=== PATIENT | male | born 1985 | race Caucasian/White ===

== ENCOUNTER 2019-04-06 00:23 | Observation (INO) ==
[2019-04-06] MEDS ORDERED: ATIVAN IV ONE (01:02)
[2019-04-06 01:23] LABS: BASO# 0.03 X1000 (0.0-0.2); BASO% 0.2 % (0.0-0.8); EOS# 0.04 X1000 (0.0-0.7); EOS% 0.2 % (0.0-10.0); HEMATOCRIT 45.9 % (42.0-52.0); HEMOGLOBIN 16.1 g/dL (14.0-18.0); IMM GRAN# 0.06 X1000 (0.0-0.04); IMM GRAN% 0.4 % (0.0-0.5); LYMPH# 1.36 X1000 (1.2-3.4); LYMPH% 8.1 % (20.5-51.1); MCH 29.3 PG (27-31); MCHC 35.1 g/dL (33-37); MCV 83.5 FL (81-99); MONO# 1.22 X1000 (0.11-0.59); MONO% 7.3 % (1.7-9.3); MPV 10.2 FL (7.4-10.4); NEUT# 14.01 X1000 (1.4-6.5); NEUT% 83.8 % (42.2-75.2); PLT 248 X1000 (130-400); WBC 16.72 X1000 (4.8-10.8)
[2019-04-06 01:26] LABS: BILIRUBIN URINE NEGATIVE (NEGATIVE); BLOOD URINE 1+ (NEGATIVE); CLARITY CLEAR (CLEAR); COLOR YELLOW; GLUCOSE URINE NEGATIVE (NEGATIVE); KETONE URINE TRACE mg/dL (NEGATIVE); LEUKOCYTES URINE TRACE (NEGATIVE); NITRITE URINE NEGATIVE (NEGATIVE); PROTEIN URINE TRACE mg/dL (NEGATIVE); UROBILINOGEN URINE NORMAL
[2019-04-06 01:31] LABS: URINE BACTERIA 4+ /HFP; URINE CAST NONE SEEN /LPF; URINE CRYSTAL NONE SEEN /HPF; URINE EPITHELIAL CELLS <10 /HPF (<10); URINE SOURCE CATH; URINE WBC <10 /HPF (<10); URINE YEAST NONE SEEN /HPF
[2019-04-06 01:45] LABS: UR AMPHETAMINES QUAL PRESUMPTIVE POSITIVE (NONE DETECT); UR BARBITUATES QUAL NONE DETECTED (NONE DETECT); UR BENZODIAZEPIN QUAL NONE DETECTED (NONE DETECT); UR CANNABINOIDS QUAL PRESUMPTIVE POSITIVE (NONE DETECT); UR COCAINE QUAL NONE DETECTED (NONE DETECT); UR METHADONE QUAL NONE DETECTED (NONE DETECT); UR METHAMPHETAMINE QUAL NONE DETECTED (NONE DETECT); UR OPIATES QUAL NONE DETECTED (NONE DETECT); UR OXYCODONE QUAL NONE DETECTED (NONE DETECT); UR PCP QUAL NONE DETECTED (NONE DETECT); UR PROPOXYPHENE QUAL NONE DETECTED (NONE DETECT); UR TCA QUAL NONE DETECTED (NONE DETECT)
--- NOTE | 2019-04-06 02:01 | PROVIDER DOCUMENTATION ---
This chart was entered by Rodger Arambula Scribe, acting as scribe for Pedro Cummings MD. HPI-Abdominal Pain/GI Problem - General Chief Complaint: Abdominal Pain Stated Complaint: abd pain Time Seen by Provider: 04/06/19 00:25 Source: patient, EMS Unable to obtain history due to:: altered Allergies/Adverse Reactions: Patient Allergies Allergy/AdvReac Type Severity Reaction Status Date / Time erythromycin base Allergy Mild Unknown Verified 06/16/17 05:21 [Erythromycin Base] Home Medications: Home Medication List Medication Instructions Recorded Confirmed Last Taken Type Unobtainable [Home Meds 04/06/19 04/06/19 Unknown History Unobtainable] - History of Present Illness-ABD Nature of Presenting Problems: Pt is a 33 yowm who presents by [facility] with a severe agitation, and severe lower abdominal pain onset at approximately 2330 after eating 2 bologna sandwiches at 2130 Pt reports using marijuana tonight also. Abdominal Pain Onset Location: reports: periumbilical Quality of Pain: reports: sharp, stabbing Severity in ED: reports: mild Onset/Duration: reports: 1-3 hours ago Timing: reports: still present Exposure to sick contacts?: No Last BM: unsure Rectal Bleeding: reports: none Bruising or Bleeding Gums?: No Similar Symptoms Previously?: No Recently seen or treated by another doctor?: No Review of Systems - Adult - REVIEW OF SYSTEMS - ADULT Constitutional: reports: see HPI. denies: chills, fever, fatique, night sweats Eyes: reports: no symptoms reported Ears, Nose, Mouth & Throat: reports: no symptoms reported Cardiovascular: reports: no symptoms reported Respiratory: reports: no symptoms reported Gastrointestinal: reports: see HPI, abdominal pain. denies: poor appetite, rectal bleeding, vomiting Genitourinary: reports: no symptoms reported Musculoskeletal: reports: no symptoms reported Integumentary: reports: no symptoms reported Neurological: reports: no symptoms reported Psychiatric: reports: no symptoms reported Endocrine: reports: no symptoms reported Hematologic/Lymphatic: reports: no symptoms reported Allergic/Immunologic: reports: no symptoms reported All Other Systems: Reviewed and Negative Past History - Adult - PAST MEDICAL HISTORY-ADULT Review of Records: reports: Old Records Reviewed, Nursing Assessment Review, Medications Reviewed, Social history reviewed & non-contributory. Major Childhood Illnesses: reports: denies history Cardiovascular: reports: denies history Respiratory: reports: denies history Gastrointestinal: reports: denies history Obstetrical/Gynecological: reports: denies history Genitourinary: reports: denies history Musculoskeletal: reports: denies history Neurological: reports: Seizures/Epilepsy Psychiatric: reports: denies history Endocrine/Immune: reports: denies history Other Conditions: reports: denies history - PRIOR SURGERIES/PROCEDURES Surgical/Procedure History: reports: none, other (wisdom teeth) - PRIOR HOSPITALIZATIONS Prior Hospitalizations: reports: none - IMMUNIZATION STATUS Childhood Immunizations: See Nurse Assessment Flu Vaccine: See Nurse Assessment - FAMILY HISTORY Family History: reviewed, not pertinent - SOCIAL HISTORY Smoking: cigarettes, greater than 1 pack/day Substance Use: alcohol Alcohol Use Frequency: every day Physical Exam-General - CONSTITUTIONAL General Appearance: alert, other (agitated, restless, unable to stay still) - EYES Eyes: other (injected conjunctiva) - HEAD, EARS, NOSE, MOUTH & THROAT HENMT: moist mucous membranes - NECK Neck: supple - RESPIRATORY Respiratory: lungs clear - CARDIOVASCULAR Cardiovascular: tachycardia - GASTROINTESTINAL (ABDOMEN) Abdominal Exam: soft, other (lower abdomen tenderness). negative: guarding, rebound - LYMPHATIC Lymphatic: no adenopathy - MUSCULOSKELETAL Back Exam: normal inspection, no CVA tenderness Extremity: normal range of motion, non-tender Peripheral Pulses: radial (R): 2+, radial (L): 2+ - SKIN Integumentary: normal color, normal turgor - NEUROLOGIC Neurologic: grossly normal, other (uncooperative to exam) - PSYCHIATRIC Psych/Mental Status: anxious, disheveled Progress - PLAN OF CARE/RESULTS Result Diagrams: 04/06/19 00:42 04/06/19 00:42 - EKG 1 Time of EKG reading by physician:: 00:35 EKG Read and Signed by:: Pedro Cummings Rate: 147 Rhythm: SINUS TACH Deale: normal VT Interval: normal Comments: NO STEMI - XRAY 1 XRAY Study: Chest XRAY Interpretation: NAD - CT/MRI 1 CT Study: Abdomen, Pelvis CT Results: NAD - CONSULTS/PCP/HOSPITALIST Notification #1 *Consult/PCP/Hospitalist*: dr. Hummel, hospitalist Time Discussed: 04:30 Reason/Comments: admit to obs, give IV NS at 150cc/hr Consult Disposition: Admit Departure - Departure Date of Disposition Decision: 04/06/19 Time of Disposition Decision: 04:31 DIAGNOSIS: Lactic acidosis, Amphetamine abuse Abdominal pain Qualifiers: Abdominal location: unspecified location Qualified Code(s): R10.9 - Unspecified abdominal pain Disposition: ADMITTED INPATIENT 09 Certified Medical Emergency: Emergent Condition: Stable Additional Freetext Instructions: ED Follow Up Instructions: You have been treated by a care provider in the Emergency Department. These instructions are being provided to you so you can have an understanding of how to care for yourself upon discharge. Upon discharge from the Emergency Department, you are responsible for making arrangements for follow-up care by a physician of your choice. Take all prescribed medications as directed. Return to the Emergency Department immediately for any new or worsening symptoms. You may call the Physician Referral phone number at [phone] to obtain a list of Physicians who are taking new patients. Referrals and Follow-Ups: None,PCP [Primary Care Provider] - - Critical Care Note This patient required my direct & personal management of CC.: No Attestation - Physician/ ALIX Attestation Patient care was provided by Advanced Practice Provider:: No The physician spent face to face time with patient:: Yes Advanced Practice Provider documentation review:: Supervising physician onsite and consulted in the evaluation and care of this patient. The physician did have a face to face encounter with the patient. This chart was documented by the indicated scribe, (Rodger Arambula Scribyoshi) and accurately reflects the services I performed and decisions made by me, Pedro Cummings MD, as attested by the provider's signature.
--- NOTE | 2019-04-06 02:06 | EKG Report ---
Test Performed on : 04/06/2019 00:34:35 AM Test Reason : pain Blood Pressure : / mmHG Vent. Rate : 147 BPM Atrial Rate : 147 BPM P-R Int : 128 ms QRS Dur : 076 ms QT Int : 278 ms P-R-T Axes : 064 074 024 degrees QTc Int : 435 ms Sinus tachycardia. Otherwise normal ECG When compared with ECG of 20-SEP-2016 09:30, Vent. rate has increased BY 73 BPM T wave amplitude has decreased in Lateral leads Unconfirmed Result
[2019-04-06 02:28] LABS: AGAP 18; ALKALINE PHOSPHATASE 83 U/L (32-122); BUN 19 mg/dL (8-22); CALCIUM 10.4 mg/dL (8.8-10.2); CHLORIDE 99 mmol/L (98-107); COSMO 281; CREATININE 1.1 mg/dL (0.7-1.2); ESTIMATED GFR > 60; GLUCOSE 125 mg/dL (70-104); GOT 28 U/L (10-34); GPT 14 U/L (10-44); LIPASE 13 U/L (13-60); POTASSIUM 4.7 mmol/L (3.5-5.1); SODIUM 139 mmol/L (136-145); TCO2 22 mmol/L (25-35); TOTAL PROTEIN 8.5 g/dL (6.3-8.3)
[2019-04-06] MEDS ORDERED: NS 2,500 ML IV ONE (02:33)
[2019-04-06] MEDS ORDERED: NS 2,000 ML IV ONE (02:36)
[2019-04-06] MEDS ORDERED: ZOSYN 3.375 GM in NS 50 ML IV ONE (02:38)
[2019-04-06] MEDS: NS 4,000 ML IV ONE ×2 (03:25→04:29)
[2019-04-06 03:43] LABS: INR 0.99; PROTIME 13.6 Seconds (11.0-16.0)
[2019-04-06 04:04] LABS: CK INDEX 1.9 (0.0-2.5); CK-MB 3.91 ng/mL (0.0-5.0)
[2019-04-06] MEDS ORDERED: NS 1,000 ML IV ONE (04:32)
--- NOTE | 2019-04-06 05:36 | Diag Imaging Result Doc PS360 ---
EXAM: CHEST-PORTABLE HISTORY: LEUKOCYTOSIS TECHNIQUE: Chest two views COMPARISON: 02/17/2014 FINDINGS: The lungs are well expanded. The heart is not enlarged. The vessels are not distended. There are no infiltrates. No effusion identified. IMPRESSION: No pneumonia Electronically signed by James Pugh 04/06/2019 5:34 AM
--- NOTE | 2019-04-06 07:39 | Diag Imaging Result Doc PS360 ---
EXAM: CT ABD/PELVIS W/IV CONT ONLY HISTORY: abdominal pain TECHNIQUE: CT abdomen and pelvis with intravenous contrast COMPARISON: 12/25/2013 FINDINGS: There is an 8 mm nodule in the left lower lobe which was not present on the prior exam. Questionable tiny central calcification. The gallbladder is contracted. No calcified stones. Normal liver, spleen, pancreas, adrenal glands, and kidneys. No hydronephrosis. Normal aorta. No bowel obstruction. No inflammation about the cecum. No abscess. No ascites. There is a Barnes catheter in the urinary bladder. No pelvic abnormality. IMPRESSION: 1.No acute abdominal or pelvic abnormality 2.New 8 mm nodule in the left lower lobe with a questionable central calcification. A follow-up imaging recommended. 3.A preliminary report was given at 3:40 AM This exam was performed using automated exposure control, adjustment of mA or kV according to patient size, and/or use of iterative reconstruction technique. Electronically signed by James Pugh 04/06/2019 7:36 AM
[2019-04-06 10:19] LABS: BASO# 0.01 X1000 (0.0-0.2); BASO% 0.1 % (0.0-0.8); EOS# 0.07 X1000 (0.0-0.7); EOS% 0.9 % (0.0-10.0); HEMATOCRIT 38.2 % (42.0-52.0); HEMOGLOBIN 12.9 g/dL (14.0-18.0); IMM GRAN# 0.02 X1000 (0.0-0.04); IMM GRAN% 0.3 % (0.0-0.5); LYMPH% 18.1 % (20.5-51.1); MCH 29.3 PG (27-31); MCHC 33.8 g/dL (33-37); MCV 86.6 FL (81-99); MONO# 0.76 X1000 (0.11-0.59); MONO% 9.8 % (1.7-9.3); MPV 9.6 FL (7.4-10.4); NEUT# 5.46 X1000 (1.4-6.5); NEUT% 70.8 % (42.2-75.2); PLT 196 X1000 (130-400); RBC 4.41 XMIL (4.7-6.1); RDW 13.1 % (11.5-14.5); WBC 7.72 X1000 (4.8-10.8)
[2019-04-06] MEDS: ATIVAN IV PRN (11:55)
--- NOTE | 2019-04-06 21:00 | HISTORY AND PHYSICAL ---
CHIEF COMPLAINT: Abdominal pain. HISTORY OF PRESENT ILLNESS: The patient is a 33-year-old male who presented to the ER with severe agitation, lower abdominal pain, had a CT in the ER that was negative. He notes that the pain started after eating 2 baloney sandwiches. He also notes that he had been smoking marijuana prior to the pain. ALLERGIES: No known drug allergies. MEDICATIONS: He is on no current chronic medications. PAST MEDICAL HISTORY: Has a history of seizures but is not currently taking any medications. PAST SURGICAL HISTORY: He has had wisdom teeth surgery. REVIEW OF SYSTEMS: Other than abdominal pain and nausea, denies any fevers, chills, dysuria. No frequency, urgency, hesitancy. Denies polyuria or polydipsia. Denies skin rashes, weight loss, weight gain. PHYSICAL EXAMINATION: VITAL SIGNS: Reviewed and stable. Blood pressure is stable. Respiratory rate 20. He is afebrile. GENERAL: He is awake, alert. Patient is in no current respiratory distress. HEENT: Normocephalic. NECK: Supple. CARDIOVASCULAR: Regular rate. No murmurs. CHEST: Clear, nonlabored. ABDOMEN: Soft, nondistended. EXTREMITIES: Moves all extremities. NEUROLOGIC: No changes. ASSESSMENT: 1. Nausea and vomiting. 2. Abdominal pain. 3. Altered mental status, appears to be improved. 4. Leukocytosis of undetermined origin. 5. Amphetamine abuse. 6. Lactic acidosis, improving. PLAN: We will continue patient in the hospital. IV fluids. We will advance his diet if he is able to tolerate it. Hopefully, he can discharge home later on this afternoon, if not, tomorrow morning. cc: Sony Mckeon MD
[2019-04-07] MEDS: PROTONIX PO SCH (06:29)
--- NOTE | 2019-04-07 09:19 | Diag Imaging Result Doc PS360 ---
EXAM: FOOT COMPLETE RIGHT HISTORY: ?glass in foot TECHNIQUE: Three views COMPARISON: None. FINDINGS: There is a tiny radiopaque foreign body adjacent to the distal proximal phalanx, medial soft tissues of the little toe. There is a nonspecific radiodensity extending partially within the soft tissues of the medial foot at the first MTP joint. This is of uncertain significance. No other radiopaque foreign bodies are appreciated. No fracture or dislocation. IMPRESSION: Potential tiny radiopaque foreign body medial soft tissues of the little toe. Linear foreign body versus artifact partially into the soft tissues at the level of the first MTP joint. Correlate clinically. Electronically signed by Arielle Benito 04/07/2019 9:17 AM
[2019-04-07] MEDS ORDERED: VANCOMYCIN IV PER PHARMACY MISC SCH (17:45)
[2019-04-07] MEDS ORDERED: VANCOMYCIN 2,000 MG in NS 500 ML IV SCH (19:30)
[2019-04-07] MEDS: ATIVAN IV PRN (20:20)
--- NOTE | 2019-04-08 04:18 | PROGRESS NOTE ---
DATE: 04/07/2019 SUBJECTIVE: The patient notes his abdominal pain is better. He is still having lots of pain on his foot. Denies any fevers or chills. PHYSICAL EXAMINATION: Vital Signs: Temperature 97.7 degrees, pulse 62, respiratory rate 18, BP 117/49. General: Patient is awake, alert. Currently he is in no distress. HEENT: Normocephalic. Neck: Supple. Cardiovascular: Regular rate. No murmurs. Chest: Clear and unlabored. Abdomen: Soft. Extremities: Moves all extremities. He has an incision on the plantar surface of his left foot. ASSESSMENT: 1. Nausea and vomiting, resolved. 2. Abdominal pain, resolved. 3. Altered mental status, resolved. 4. Leukocytosis, improved. 5. Abnormal blood culture. Unclear if this is contaminant although he does have a source of infection for his left foot although his foot itself does not appear to be infected. 6. Amphetamine abuse. 7. Lactic acidosis, resolved. PLAN: Given that his blood culture has gram positive cocci, we will place him on vancomycin. We will continue to follow. Should this be a contaminant, we will discharge him home. He does have some type of foreign body in his left foot. Expect this is glass that he stepped on. We will have him follow up outpatient with Surgery if this does not come out on its own. cc: Sony Mckeon MD
[2019-04-08] MEDS: PROTONIX PO SCH (06:45)
[2019-04-08 08:41] VITALS: BP 131/81
--- NOTE | 2019-04-09 04:01 | DISCHARGE SUMMARY ---
ADMISSION DATE: 04/06/2019 DISCHARGE DATE: 04/08/2019 ADDENDUM: Patient seen and examined by myself. Full note dictated and discussed with nurse practitioner. Patient presented to the hospital with abdominal pain that appears to have resolved. He was noted to have a gram-positive cocci growing in his blood. Thankfully, this was contaminant. His enzymes are back to normal. He does have a wound on his right foot that is likely glass. He will continue to bandage this at home. If it does not come out, he will have to follow up outpatient with General Surgery. cc: Sony Mckoen MD
--- NOTE | 2019-04-09 06:52 | DISCHARGE SUMMARY ---
ADMISSION DATE: 04/06/2019 DISCHARGE DATE: 04/08/2019 CONSULTATIONS: None. PERTINENT PROCEDURES: 1. Abdomen and pelvis CT. No acute abdominal or pelvic abnormality. New 8 mm nodule in the left lower lobe with questionable central calcification. Recommend follow-up imaging. 2. Right foot x-ray showed potential tiny radiopaque foreign body medial soft tissues of the little toe, linear foreign body versus artifact particularly into the soft tissues at the level of the 1st MTP joint. PRIMARY CARE PROVIDER: None. DISCHARGE DIAGNOSES: 1. Nausea and vomiting resolved. 2. Abdominal pain, resolved. 3. Altered mental status, resolved. 4. Leukocytosis improved. 5. Abnormal blood culture has grown out to be a coag-negative staph. Second blood culture showed no growth. Urine culture no growth. 6. Amphetamine abuse. The patient has been educated on abstinence. 7. Lactic acidosis, resolved. 8. Glass in the right foot. Imaging was obtained. RECOMMENDATIONS: We will wait and see if the glass will come out of the foot. Have him follow up with General Surgery. We will give him 7 days of IV antibiotics with Keflex. HOSPITAL COURSE: Briefly, Mr. Roche is a 33-year-old male who reports a past medical history of seizures, but is not currently taking any medications. Reported to the ED at [facility] with severe agitation and lower abdominal pain. CT in the ED was essentially negative. The pain started after eating two bologna sandwiches. He also noted that he had been smoking pot prior to the pain. He was admitted to the hospital, initiated on IV fluids, and found to have a lactic acidosis. He was provided with antiemetics, and educated on the importance of amphetamine abstinence. He did have 1 culture grew out a gram-positive cocci for which he was given 1 dose of vancomycin that turned out to be a coag-negative Staphylococcus. He did complain about some right foot pain and stepping on some glass. We did imaging and was unclear. We spoke with General Surgery. They agree with antibiotics and follow up as an outpatient in their office. His nausea and vomiting, abdominal pain and altered mental status have all resolved. He will be discharged back home today. VITAL SIGNS: At time of discharge, temperature 97.8 degrees, heart rate 74, respirations 14, blood pressure 138/82, and O2 is 100% on room air. DISCHARGE DIET: Regular. DISCHARGE MEDICATIONS: Keflex 500 mg p.o. t.i.d. FOLLOWUP: Mr. Roche is being discharged back home with self care. He is to take all antibiotics as prescribed, and follow up with Dr. Kitchen as an outpatient. He will also need a follow-up x- ray or other imaging for a new 8 mm nodule to the left lower lobe with a questionable central calcification. He will need to obtain a primary care provider. His follow-up chest x-ray did not note any findings. He can return to the ED or call 911 for any worsening of symptoms. Dictated by ZO Lawson for Sony Mckeon MD cc: Sony Mckeon MD
== END 2019-04-08 09:40 | disposition home or self-care (01) ==
LOC: SUPCPDRO → P.MEDSURG 00:23 → P.ED 00:23 → SUATTDRO 04:36
PROVIDERS: ATTEND Family Medicine
CPT/HCPCS: 71010; 71045; 73630; 74177; 80053; 80104; 80301; 80305; 80307; 80320; 81001; 82055; 82550; 82553; 83605; 83690; 84484; 85025; 85610; 85730; 87040; 87088; 93005; A9270; G0431; G0434; G0477; G0480; G6040; J2060; J2543; J3370; J7030; J7040; Q9967